=== PATIENT | female | born 1965 ===

== ENCOUNTER 2025-07-05 17:54 | Emergency (ER) | payer SELFPAY ==
[~2025-07-05] VITALS: Ht 160 cm; Wt 71.7 kg
[2025-07-05] MEDS ORDERED: FentaNYL Citrate 50 MCG/ML 2 ML Injection IV ONE (18:35)
[2025-07-05] MEDS ORDERED: DiphenhydrAMINE HCl 50 MG/ML 1ML Vial IV ONE (18:45)
[2025-07-05] MEDS ORDERED: HYDROmorphone HCl/Pf 1MG SYR IV ONE (19:15)
[2025-07-05] MEDS ORDERED: Ketorolac Tromethamine 15mg Vial IV ONE (19:20)
[2025-07-05] MEDS ORDERED: Ondansetron HCl 2 MG / ML 2ML Vial IV ONE ×2 (19:20→20:25)
[2025-07-05 20:39] LABS: BASOPHILS ABSOLUTE AUTO 0.08 K/mm3 (0.00-0.23); BASOPHILS PERCENT AUTO 1 % (0-2); EOSINOPHILS ABSOLUTE AUTO 0.02 K/mm3 (0.00-0.68); EOSINOPHILS PERCENT AUTO 0 % (0-6); Hematocrit 39.9 % (33.0-51.0); Hemoglobin 13.5 g/dL (11.5-16.0); IMMATURE GRAN ABSOLUTE AUTO 0.07 K/mm3 (0.00-0.10); IMMATURE GRAN PERCENT AUTO 1 % (0-1); LYMPHOCYTES ABSOLUTE AUTO 1.80 K/mm3 (0.84-5.20); LYMPHOCYTES PERCENT AUTO 15 % (21-46); MONOCYTES ABSOLUTE AUTO 0.58 K/mm3 (0.16-1.47); MONOCYTES PERCENT AUTO 5 % (4-13); Mean Corpuscular HGB Conc 33.8 g/dL (31.5-36.5); Mean Corpuscular Volume 83 fL (80-100); NEUTROPHILS ABSOLUTE AUTO 9.50 K/mm3 (1.96-9.15); NEUTROPHILS PERCENT AUTO 79 % (41-73); NRBC ABSOLUTE 0.00 K/mm3 (0.00-0.02); NRBC Auto 0.0 /100 WBC (0.0-0.2); Platelet Count 275 K/mm3 (150-400); RDW Coefficient Variation 12.6 % (11.7-14.2); RDW Standard Deviation 38.3 fL (35.1-46.3)
[2025-07-05 21:02] LABS: Alanine Aminotransfer (ALT/SGP 31.0 U/L (12-78); Albumin, Blood 4.2 g/dL (3.4-5.0); Albumin/Globulin Ratio 1.3 (0.8-1.8); Anion Gap 8.0 mmol/L (3-11); Aspartate Aminotrans (AST/SGOT 26.0 U/L (12-37); Bilirubin, Total 0.4 mg/dL (0.1-1.0); Blood Urea Nitrogen 12.0 mg/dL (8-24); CO2, Blood 29.0 mmol/L (21-32); Calcium, Blood 8.9 mg/dL (8.5-10.1); Chloride, Blood 103.0 mmol/L (98-108); Creatinine, Blood 0.58 mg/dL (0.40-1.00); Globulin, Blood 3.3 g/dL (2.2-4.0); Glucose, Blood 205.0 mg/dL (70-99); Potassium, Blood 3.6 mmol/L (3.5-5.5); Sodium, Blood 136.0 mmol/L (136-145); Total Protein, Blood 7.5 g/dL (6.4-8.2)
[2025-07-05] MEDS ORDERED: RX Prepack 6 Tabs Oxycodone 5mg UD ONE (21:30)
[2025-07-05] MEDS ORDERED: OXAYDO5 M1 PO (21:35)
[2025-07-05] MEDS ORDERED: AMOCLA875 PO (21:35)
[2025-07-05] MEDS ORDERED: Clindamycin 600mg in D5W 50 ML IV ONE (21:40)
== END 2025-07-05 22:29 | disposition home or self-care (01) ==
LOC: ER 17:54
PROVIDERS: Student in an Organized Health Care Education/Training Program
DX: S62.623B Displaced fracture of middle phalanx of left middle finger, initial encounter for open fracture (principal); S71.112A Laceration without foreign body, left thigh, initial encounter; S51.812A Laceration without foreign body of left forearm, initial encounter; Z88.5 Allergy status to narcotic agent; Z79.899 Other long term (current) drug therapy; E11.9 Type 2 diabetes mellitus without complications; W54.0XXA Bitten by dog, initial encounter
CPT/HCPCS: 73130; 80053; 85025; A9270; J1171; J1200; J1885; J2405; J3010

== ENCOUNTER 2025-07-10 09:16 | Day surgery (SDC) | payer OTHER, MEDICARE ==
[~2025-07-10] VITALS: Ht 160 cm; Wt 72.6 kg
[~2025-07-10 09:16] MED LIST: AMOCLA875 PO; OXAYDO5 M1 PO
[2025-07-10] MEDS ORDERED: CeFAZolin Sodium 2,000 MG VIAL ONE (10:16)
[2025-07-10] MEDS ORDERED: OXYC10TA19 (10:37)
[2025-07-10] MEDS ORDERED: SUCRALFATE114 (10:38)
[2025-07-10] MEDS ORDERED: BASAGLAR K100 UNIT/3 (10:38)
[2025-07-10] MEDS ORDERED: LIDOCAINE1 EACH (10:38)
[2025-07-10] MEDS ORDERED: ONDANSETRON ODT16 MG (10:39)
[2025-07-10] MEDS ORDERED: EZETIMIBE10 M6 (10:39)
[2025-07-10] MEDS ORDERED: NURTEC ODT75 MG (10:39)
[2025-07-10] MEDS ORDERED: PEPCID40 MG (10:39)
[2025-07-10] MEDS ORDERED: EPINEPHRIN0.3 MG/0.1 (10:39)
[2025-07-10] MEDS ORDERED: LIPITOR80 MG (10:39)
[2025-07-10] MEDS ORDERED: ZANAFLEX413 (10:40)
[2025-07-10] MEDS ORDERED: Hydroxyzine HCl50 MG (10:40)
[2025-07-10] MEDS ORDERED: ADMELOG SO100 UNIT/2 (10:40)
[2025-07-10] MEDS ORDERED: Neurontin800 MG (10:40)
[2025-07-10] MEDS ORDERED: OMEP20ER (10:41)
[2025-07-10] MEDS ORDERED: ALBUTEROL SULFATE HF (10:50)
[2025-07-10] MEDS ORDERED: Lidocaine HCl 2% 10 ML SDA ONE (11:12)
[2025-07-10] MEDS ORDERED: Lidocaine 1%-Epineph 1:100000 20 ML MDV INJ ONE (11:33)
[2025-07-10] MEDS ORDERED: Sodium Bicarb 8.4% Inj 1 MEQ/ML 10ML Vial XX ONE (11:33)
--- NOTE | 2025-07-10 12:03 | NUR ---
07/10/25 1203 Ashley Morel 1200 - ASSUMED CARE OF PT FROM COREY ANN.
== END 2025-07-10 12:50 | disposition home or self-care (01) ==
LOC: ORSCSDS 09:16
PROVIDERS: Orthopaedic Surgery
PROC: 0X6R0Z1 Detachment at Left Middle Finger, High, Open Approach (ICD-10-PCS; principal; 2025-07-10 11:00)
DX: S62.623B Displaced fracture of middle phalanx of left middle finger, initial encounter for open fracture (principal); W54.0XXA Bitten by dog, initial encounter; E11.9 Type 2 diabetes mellitus without complications; M79.7 Fibromyalgia; G47.33 Obstructive sleep apnea (adult) (pediatric); Z79.4 Long term (current) use of insulin; Z79.899 Other long term (current) drug therapy
CPT/HCPCS: 82947; A9270; J0690; J2003; J2704; J7120

== ENCOUNTER → 2025-08-14 | Outpatient (CLI) | payer MEDICARE ==
[~2025-08-14] MED LIST changes: +ADMELOG SO100 UNIT/2; +ALBUTEROL SULFATE HF; +BASAGLAR K100 UNIT/3; +EPINEPHRIN0.3 MG/0.1; +EZETIMIBE10 M6; +Hydroxyzine HCl50 MG; +LIDOCAINE1 EACH; +LIPITOR80 MG; +NURTEC ODT75 MG; +Neurontin800 MG; +OMEP20ER; +ONDANSETRON ODT16 MG; +OXYC10TA19; +PEPCID40 MG; +SUCRALFATE114; +ZANAFLEX413
[2025-08-14 13:33] LABS: Creatinine, Urine Random 167.0 mg/dL (27.00-270.00); Microalb/Creat Ratio UR, Rand 23.892 mg/g (0.000-30.000); Microalbumin, Random Urine 39.9 mg/L (0.000-20.000)
== END ==
LOC: LAB SHORT 10:44 → LAB 10:44
PROVIDERS: Student in an Organized Health Care Education/Training Program
DX: E11.69 Type 2 diabetes mellitus with other specified complication (principal); Z79.4 Long term (current) use of insulin
CPT/HCPCS: 82043; 82570